=== PATIENT | female | born 1995 | race Asian ===

== ENCOUNTER 2016-11-10 15:03 | Emergency (ER) | payer OTHER ==
[~2016-11-10] VITALS: Ht 157.5 cm; Wt 50.7 kg
[~2016-11-10 15:03] MED LIST: ZLF50 PO; [UNRECOGNIZED DRUG - CODE] PO
[2016-11-10 15:05] VITALS: TEMP 36.5; Ht 157.5 cm; Wt 50.7 kg
[2016-11-10 16:11] LABS: BASO % 0.2 %; BASO ABS # 0.01 K/uL (0-0.2); COMPLETE YES; HEMATOCRIT 40.6 % (37-47); LYMPH % 22.9 %; LYMPH ABS # 1.33 K/uL (1.2-3.4); MEAN CORPUSCULAR HGB CONC 33.7 g/dl (32-36); MEAN PLATELET VOLUME 10.4 fL (7.4-10.4); MONO % 5.7 %; NEUT % 71.2 %; PLATELET COUNT 222 K/uL (130-400); RED BLOOD COUNT 4.89 M/uL (4.2-5.4); WHITE BLOOD COUNT 5.81 K/uL (4.8-10.8)
[2016-11-10 16:27] LABS: URINE APPEARANCE CLEAR (CLEAR); URINE BILIRUBIN NEG (NEG); URINE COLOR YELLOW; URINE NITRITE NEG (NEG); URINE SPECIFIC GRAVITY 1.001 (1.000-1.030); UROBILINOGEN NEG (NEG)
[2016-11-10 16:32] LABS: ACETAMINOPHEN < 2 ug/ml (10-30)
[2016-11-10 16:34] LABS: BUN/CREATININE RATIO 17.5 (10-20); CALCIUM 8.8 mg/dl (8.5-10.1); CREATININE 0.62 mg/dl (0.60-1.20); POTASSIUM 3.8 mmol/L (3.5-5.1)
[2016-11-10 16:46] LABS: ALB/GLOB RATIO 1.1 (0.9-2); THYROID STIMULATING HORMONE 0.037 uIu/ml (0.300-4.500)
[2016-11-10 16:53] LABS: MANUAL MICROSCOPIC REQUIRED? NO; REVIEW REQ? NO
[2016-11-10 16:57] LABS: BENZODIAZEPINE, URINE NEG (NEG); COCAINE,URINE NEG (NEG); PHENCYCLIDINE, URINE NEG (NEG)
[2016-11-10 19:17] VITALS: BP 107/68; PULSE 67; O2SAT 99
--- NOTE | 2016-11-11 00:18 | EMERGENCY ROOM VISIT NOTE ---
History Report prepared by Jonathon: Jarret Gomez Under the Supervision of: Dr. Jam Delatorre M.D. First contact with patient: 15:23 Chief Complaint: MENTAL HEALTH EVALUATION Stated Complaint: 302 History of Present Illness The patient is a 21 year old female who presents to the Emergency Room with complaints of intermittent suicidal thoughts occurring for the past few weeks. She has been crying for no reason. She reports mood swings and muscle tension. The patient has been feeling stressed this semester from school work. She does not think she can graduate this semester and feels she is overloaded with her classes. Her stress worsened about 2 weeks ago when the semester started. She feels overwhelmed. She had a loss of appetite and weakness. She reports irregular sleep pattern and poor concentration. She started having suicidal ideation a few weeks ago. She denies any suicide attempts or any specific plan. The patient denies any hallucinations or homicidal ideation. She has a history of 2 suicide attempts. She also has a history of depression and anxiety. She denies any drug or alcohol use. The patient does not smoke cigarettes. The patient currently denies any pain. Pt denies LOC, headache, fevers, chills, diaphoresis, visual changes, neck pain, chest pain, breathing difficulties, nausea, vomiting, abdominal pain, back pain, melena, hematochezia, urinary symptoms, numbness, lymphadenopathy, rash, or other complaints. The patient was evaluated by her therapist, Lisa Torrez, at [facility]. The patient had expressed thoughts of hurting herself due to school stress and the possibility of losing her scholarship. The patient was hospitalized 2 years ago for suicide attempt. Her therapist referred her to the Emergency Room for concerns about the suicidal ideation. Source of History: patient Onset: a few weeks ago Position: other (global) Symptom Intensity: No pain Quality: other (suicidal thoughts) Timing: intermittent Review of Systems See HPI for pertinent positives and negatives. A total of ten systems were reviewed and were otherwise negative. Past Medical & Surgical Medical Problems: (1) Depression (2) H/O suicide attempt (3) Hyperthyroidism Family History Patient reports no known family medical history. Social History Smoking Status: Never Smoker Marital Status: single Housing Status: lives with roommate Occupation Status: [employer] student Current/Historical Medications Scheduled Carbimazole (Bulk) (Carbimazole), 5 MG PO QID Allergies Coded Allergies: Caffeine (Verified Allergy, Unknown, migraine, 11/10/16) Physical Exam Vital Signs Date Time Temp Pulse Resp B/P Pulse Ox O2 Delivery O2 Flow Rate FiO2 11/10/16 19:17 67 16 107/68 99 11/10/16 19:10 67 16 107/68 99 Room Air 11/10/16 17:11 60 18 108/66 100 Room Air 11/10/16 15:05 36.5 68 17 132/88 99 Room Air Physical Exam GENERAL: Awake, alert, depressed appearing, no distress HENT: Normocephalic, atraumatic. TM's normal. Oropharynx unremarkable. EYES: PERRL. EOMI. Normal conjunctiva. Sclera non-icteric. NECK: Supple. No nuchal rigidity. FROM. No JVD or bruit. RESPIRATORY: CTA CARDIAC: RRR. No murmur. ABDOMEN: Soft, non distended. No tenderness to palpation. No rebound or guarding. No masses. MUSCULOSKELETAL: Unremarkable. No edema. No discoloration. Gross motor strength symmetric. NEURO: Cranial nerves 2-12 grossly intact. Normal sensorium. No sensory or motor deficits noted. Speech normal. No pronator drift. SKIN: No rash or jaundice noted. LYMPH: No adenopathy. PSYCH: Depressed mood. Flat affect. Vague suicidal thoughts. No definite plan. No homicidal ideation. Medical Decision & Procedures Laboratory Results 11/10/16 15:57 Red Blood Count 4.89, Mean Corpuscular Volume 83.0, Mean Corpuscular Hemoglobin 28.0, Mean Corpuscular Hemoglobin Concent 33.7, Mean Platelet Volume 10.4, Neutrophils (%) (Auto) 71.2, Lymphocytes (%) (Auto) 22.9, Monocytes (%) (Auto) 5.7, Eosinophils (%) (Auto) 0.0, Basophils (%) (Auto) 0.2, Neutrophils # (Auto) 4.14, Lymphocytes # (Auto) 1.33, Monocytes # (Auto) 0.33, Eosinophils # (Auto) 0.00, Basophils # (Auto) 0.01 11/10/16 15:57 Test 11/10/16 15:14 11/10/16 15:57 Urine Color YELLOW Urine Appearance CLEAR (CLEAR) Urine pH 6.0 (4.5-7.5) Urine Specific [place] 1.001 (1.000-1.030) Urine Protein NEG (NEG) Urine Glucose (UA) NEG (NEG) Urine Ketones NEG (NEG) Urine Occult Blood NEG (NEG) Urine Nitrite NEG (NEG) Urine Bilirubin NEG (NEG) Urine Urobilinogen NEG (NEG) Urine Leukocyte Esterase NEG (NEG) Urine Test NEG (NEG) Urine Opiates Screen NEG (NEG) Urine Methadone, Qualitative NEG (NEG) Urine Barbiturates NEG (NEG) Urine Phencyclidine (PCP) Level NEG (NEG) Ur Amphetamine/Methamphetamine NEG (NEG) MDMA (Ecstasy) Screen NEG (NEG) Urine Benzodiazepines Screen NEG (NEG) Urine Cocaine Metabolite NEG (NEG) Urine Marijuana (THC) NEG (NEG) White Blood Count 5.81 K/uL (4.8-10.8) Red Blood Count 4.89 M/uL (4.2-5.4) Hemoglobin 13.7 g/dL (12.0-16.0) Hematocrit 40.6 % (37-47) Mean Corpuscular Volume 83.0 fL (80-100) Mean Corpuscular Hemoglobin 28.0 pg (25-34) Mean Corpuscular Hemoglobin Concent 33.7 g/dl (32-36) Platelet Count 222 K/uL (130-400) Mean Platelet Volume 10.4 fL (7.4-10.4) Neutrophils (%) (Auto) 71.2 % Lymphocytes (%) (Auto) 22.9 % Monocytes (%) (Auto) 5.7 % Eosinophils (%) (Auto) 0.0 % Basophils (%) (Auto) 0.2 % Neutrophils # (Auto) 4.14 K/uL (1.4-6.5) Lymphocytes # (Auto) 1.33 K/uL (1.2-3.4) Monocytes # (Auto) 0.33 K/uL (0.11-0.59) Eosinophils # (Auto) 0.00 K/uL (0-0.5) Basophils # (Auto) 0.01 K/uL (0-0.2) RDW Standard Deviation 38.1 fL (36.4-46.3) RDW Coefficient of Variation 12.7 % (11.5-14.5) Immature Granulocyte % (Auto) 0.0 % Immature Granulocyte # (Auto) 0.00 K/uL (0.00-0.02) Anion Gap 9.0 mmol/L (3-11) Est Creatinine Clear Calc Drug Dose 112.6 ml/min Estimated GFR () 148.3 Estimated GFR (Non- 128.0 BUN/Creatinine Ratio 17.5 (10-20) Calcium Level 8.8 mg/dl (8.5-10.1) Total Bilirubin 0.8 mg/dl (0.2-1) Direct Bilirubin 0.1 mg/dl (0-0.2) Aspartate Amino Transf (AST/SGOT) 12 U/L (15-37) Alanine Aminotransferase (ALT/SGPT) 19 U/L (12-78) Alkaline Phosphatase 74 U/L (45-117) Total Protein 7.7 gm/dl (6.4-8.2) Albumin 4.1 gm/dl (3.4-5.0) Globulin 3.6 gm/dl (2.5-4.0) Albumin/Globulin Ratio 1.1 (0.9-2) Thyroid Stimulating Hormone (TSH) 0.037 uIu/ml (0.300-4.500) Salicylates Level < 1.7 mg/dl (2.8-20) Acetaminophen Level < 2 ug/ml (10-30) Ethyl Alcohol mg/dL < 3.0 mg/dl (0-3) Laboratory results reviewed by ne ED Course 1523: The patient was evaluated in room A06. A complete history and physical exam was performed. 1745: The patient is currently being evaluated by mental health. She does not currently have any complaints. 1840: The mental health delegated recommended discharging the patient. 1900: I reevaluated the patient and she is very comfortable with being discharged home. Discussed results and discharge instructions: She verbalized understanding and agreement. She will follow up with outpatient services and [facility]. The patient is ready for discharge. Medical Decision Triage Nursing notes reviewed. The patient's presentation and history were concerning for depression and suicidal thoughts. Etiologies such as mood disorder, toxicologic, infection, hypoglycemia, electrolyte abnormalities, cardiac sources, intracerebral event, neurologic, as well as others were entertained. The patient was evaluated. She had a petition statement from her therapist who was concerned about her mood. The patient was calm and cooperative. She feels overwhelmed by her work load at school. The patient had blood work obtained. Urinalysis obtained as well. Medically speaking the patient has been doing well over the last few weeks. Physical examination did not reveal any acute medical findings. The patient had an unremarkable CBC, urinalysis, test, chemistry panel, LFTs, drug screen, alcohol, Tylenol, and salicylate levels. The patient had a mildly low TSH which was consistent with her previously diagnosed hyperthyroidism. The patient was informed. She will follow-up as an outpatient for this. The patient was evaluated by the mental health liaison. She was not actively suicidal. She notes that the patient prefers not to be admitted to the hospital due to the impact on her academic work. The patient felt very comfortable with outpatient follow-up and services were arranged. She feels comfortable and safe going home and understands she can return at any time. I did meet with the patient and discuss this with her. She felt very comfortable. She was not actively suicidal. She is not homicidal. Her mood was improved. I gave my usual and customary discussion regarding this issue. Return insertions were outlined and the patient was discharged in stable condition. The chart was completed utilizing [employer] Speech voice recognition software. Grammatical errors, random word insertions, pronoun errors, and incomplete sentences are an occasional consequence of this system due to software limitations, ambient noise, and hardware issues. Any formal questions or concerns about the content, text, or information contained within the body of this dictation should be directly addressed to the physician for clarification. Impression Primary Impression: Mood disorder Scribe Attestation The scribe's documentation has been prepared under my direction and personally reviewed by me in its entirety. I confirm that the note above accurately reflects all work, treatment, procedures, and medical decision making performed by me. Departure Information Dispostion Home / Self-Care Referrals [facility] (PCP) Forms HOME CARE DOCUMENTATION FORM, IMPORTANT VISIT INFORMATION Patient Instructions My [facility] Additional Instructions PSYCHIATRIC INSTRUCTIONS: Continue your current medications. Return to the ER for severe anxiety or depression, thoughts of hurting yourself or others, inability to function, hallucinations, worsening of your condition, or as needed. Follow up with outpatient services as arranged by psychiatry/mental health. Follow up with [facility] this week for a recheck of your current condition and continued care due to your elevated thyroid function.
[2017-06-30] MEDS ORDERED: ASCO1CAP3 (10:17)
[2017-06-30] MEDS ORDERED: HYDR-5688 PO (12:41)
== END 2016-11-10 19:19 | disposition home or self-care (01) ==
LOC: C.EDB 15:04 → C.EDA 19:19
DX: F39 Unspecified mood [affective] disorder (principal); R45.851 Suicidal ideations; Z91.5 Personal history of self-harm

== ENCOUNTER → 2017-06-30 | Day surgery (SDC) | payer OTHER ==
--- NOTE | 2017-06-29 12:38 | History and Physical: Surg Cnt ---
History & Physical Date Jun 29, 2017. 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, treated with antibiotics, also has fistula opening left side Past Medical/Surgical History Medical Problems: (1) Depression (2) H/O suicide attempt (3) Hyperthyroidism Additional History Hepatic Disease: No Endocrine Disorder: No Kidney Disease: No Hypertension: No Heart Disease: No Bleeding Tendencies: No Infectious Diseases: No Allergies Coded Allergies: Caffeine (Verified Allergy, Unknown, migraine, 11/10/16) Home Medications Scheduled Carbimazole (Bulk) (Carbimazole), 5 MG PO QID Physical Examination Skin: warm/dry, no rash Eyes: normal inspection, EOMI, sclerae normal ENT: normal ENT inspection, pharynx normal Head: normocephalic, atraumatic Neck: supple, no adenopathy, trachea midline Respiratory/Chest: lungs clear, normal breath sounds, no respiratory distress Cardiovascular: regular rate, rhythm, no edema, no murmur Abdomen / GI: normal bowel sounds, non tender Back: normal inspection Extremities: normal inspection, normal range of motion Neurologic/Psych: no motor/sensory deficits, alert, normal reflexes, oriented x 3 Diagnosis right preauricular fistula and cyst Plan of Treatment excision of cyst and fistula. explained risks including recurrence
[2017-06-29 12:54] VITALS: Ht 157.5 cm; Wt 50.5 kg
[~2017-06-30] VITALS: Ht 157.5 cm; Wt 50.5 kg
[~2017-06-30] MED LIST changes: +ASCO1CAP3; +ATROPINE SULFATE 0.1 MG/ML 5ML SYR IV PRN; +CEFAZOLIN 1000MG/55 ML D5W IV SCH; +DEXAMETHASONE SOD INJ 4 MG/ML VIAL ONE; +EpHEDrine SULFATE INJ 50 MG/ML AMP IV PRN; +EpHEDrine SULFATE INJ 50 MG/ML AMP ONE; +FENTANYL CITRATE INJ 50 MCG/1 ML 2 ML VIAL IV PRN; +FENTANYL CITRATE INJ 50 MCG/1 ML 2 ML VIAL ONE; +GELATIN SPONGE 12-7MM ONE; +HYDR-5688 PO; +HYDROCODONE/ACETAMOPHEN 5/325MG TAB PO PRN; +LACTATED RINGER'S 1000ML 1,000 ML IV SCH; +LIDO 2%/EPINEPHRINE 1:100000 20 ML VIAL INFIL ONE; +LIDOCAINE HCL 2% 2 ML VIAL (20MG/ML) ONE; +METHYLENE BLUE 0.5% 10 ML VIAL ONE; +MIDAZOLAM HCL 1 MG/ML 2ML VIAL ONE; +NEOMYCIN/POLYMYXIN/BACITR/HC 15 GM TUBE ONE; +ONDANSETRON INJ 2 MG/ML 2 ML VIAL IV PRN; +ONDANSETRON INJ 2 MG/ML 2 ML VIAL ONE; +PROPOFOL IV EMULSION 10 MG/ML 20 ML VIAL IV ONE; +SODIUM CHLORIDE 0.9% 1000ML 1,000 ML IV SCH; -ZLF50 PO; -[UNRECOGNIZED DRUG - CODE] PO
--- NOTE | 2017-06-30 11:38 | History & Physical Bridge Note ---
H&P Re-Evaluation Bridge Note: I have examined the patient, reviewed the History & Physical and in the interval since the performance of the History & Physical I have noted the following changes of clinical significance: No changes noted
--- NOTE | 2017-06-30 12:40 | [facility] Operative Report ---
Operative Report Operative Date Jun 30, 2017. Pre-Operative Diagnosis Right preauricular cyst & fistula Post-Operative Diagnosis Same as pre-op Procedure(s) Performed Right preauricular cyst & fistula excision Surgeon Dr. Douglas [employer] Representative Surgeon(s) None Estimated Blood Loss 5ML Findings Cyst and fistula, completely excised Specimens A. Right preauricular cyst & fistula Anesthesia LMA Complication(s) None Disposition Recovery Room / PACU Indications 21-year-old female with infected right preauricular cyst and fistula Description of Procedure The patient was brought to the operating room placed supine position general anesthesia was induced with LMA. The fistula was probed with a lacrimal probe and then filled with methylene blue using an Angiocath catheter. Local anesthesia of 1% Xylocaine with 1 100,000 strength epinephrine was used. An elliptical incision was made around the fistula carried down inferiorly over the cyst with the lacrimal probe in place excising the entire fistula and cyst down to the tragal cartilage. There was no leakage of methylene blue indicating that the entire cyst was removed. The incision was closed with interrupted 4-0 chromic sutures subcuticularly and with Dermabond on the skin. She tolerated procedure well and was taken recovery area in satisfactory condition I attest to the content of the Intraoperative Record and any orders documented therein. Any exceptions are noted below.
--- NOTE | 2017-06-30 12:43 | Discharge Instructions-SurgCtr ---
Discharge Instructions Date of Service Jun 30, 2017. Visit Reason for Visit: Right Preauricular Cyst And Fistula Discharge Discharge Diagnosis / Problem: same Discharge Goals Goal(s): Therapeutic intervention Activity Recommendations Activity Limitations: resume your previous activity Anesthesia . Post Anesthesia Instructions: If you have had General Anesthesia or IV Sedation: * Do not drive today. * Resume driving when surgeon permits. * Do not make important decisions or sign legal documents today. * Call surgeon for: 1. Temperature elevations greater than 101 degrees F. 2. Uncontrollable pain. 3. Excessive bleeding. 4. Persistent nausea and vomiting. 5. Medication intolerance (nausea, vomiting or rash). * For nausea and vomiting use only clear liquids such as: tea, soda, bouillon until nausea subsides, then gradually increase diet as tolerated. * If you have any concerns or questions, call your surgeon's office. If physician is unavailable and it is an emergency, call 911 or go to the nearest emergency room. . Instructions / Follow-Up Instructions / Follow-Up ACTIVITY: Most patients are able to return to a full-time work schedule in 1 week; however this may vary according to your job. It may take longer to return to heavy physical or other demanding work, or shorter if you are feeling well. Do NOT drive while you are taking pain medicines. DIET: You may be able to return to your usual diet INCISION CARE: You may shower 24 hours after surgery but please do not swim or soak in a tub for at least 2 weeks. After you are done showering, just pat your incision dry. If it is draining clear fluid, you can cover it with a dry dressing (such as gauze). Do NOT scrub with soap or washcloth for the first 10 days. Mild swelling at the incision site will go away in 4-6 weeks. The pink line will slowly fade to white during the next 6-12 months. Use a sunscreen (SPF#30 or higher) or wear a scarf for protection if in the sun for the first 6 months to a year as the sun can darken your scar. You may begin to use a hypoallergenic moisturizing cream (no vitamin E, Mederma , or other scar creams) along the incision after 2 weeks. COMMON PROBLEMS: Numbness of the skin under the chin or above the incision is normal and should go away in a few weeks. You may feel a lump or pressure in your throat sensation when swallowing for a few days. Your incision may feel itchy while it heals. Avoid rubbing or scratching if possible. You do not need to be at bed rest, being active is normally well tolerated within reason. CALL YOUR DOCTOR IF: For any non-urgent questions, call Dr. Gillespie office [phone] or the nursing unit where you were a patient. Call Dr. Douglas [phone] or go to the Emergency Room if you have fever ( temperature greater than 100.5), chills, lightheadedness, shortness of breath, difficulty breathing, nausea, vomiting, numbness or tingling in your fingers, hands, or mouth, muscle spasms, or if you notice signs of wound infection ( redness, tenderness, or drainage from the incision). Please also call or go to the Emergency Room if you have any other urgent concerns. FOLLOW UP VISIT: Follow-up visit with Dr. Douglas. Please call to schedule if not already scheduled. Diet Recommendations Home Diet: no limitations Procedures Procedures Performed: Right preauricular cyst & fistula excision Pending Studies Studies pending at discharge: no Medical Emergencies . Who to Call and When: Medical Emergencies: If at any time you feel your situation is an emergency, please call [phone] immediately. . Non-Emergent Contact Non-Emergency issues call your: Primary Care Provider . . "Provider Documentation" section prepared by Leticia Douglas. . [place] Drug Monitoring Program Search Results: no issues identified
--- NOTE | 2017-06-30 13:38 | Anesthesia Progress Nt - [facility] ---
Anesthesia Post Op Note Date & Time Jun 30, 2017 at 13:37 Vital Signs Pain Intensity: 2 Vital Signs Past 12 Hours Date Time Temp Pulse Resp B/P (MAP) Pulse Ox O2 Delivery O2 Flow Rate FiO2 06/30/17 13:16 36.7 82 16 110/74 (86) 99 Room Air 06/30/17 13:12 68 20 106/60 100 Room Air 06/30/17 13:07 64 24 06/30/17 13:07 63 24 99 06/30/17 13:06 107/65 06/30/17 13:02 67 21 100 06/30/17 13:02 66 21 06/30/17 13:01 115/66 06/30/17 12:57 68 22 06/30/17 12:57 68 22 100 06/30/17 12:56 113/65 06/30/17 12:52 62 19 100 06/30/17 12:52 63 19 06/30/17 12:51 109/59 06/30/17 12:47 67 22 100 06/30/17 12:47 67 22 06/30/17 12:46 109/67 06/30/17 12:42 61 19 100 06/30/17 12:42 61 19 06/30/17 12:41 59 17 111/60 100 06/30/17 12:41 59 17 06/30/17 12:37 113/53 06/30/17 12:36 36.6 67 16 113/53 100 Mask 6 06/30/17 10:17 36.6 85 22 107/73 (84) 97 Room Air Notes Mental Status: alert / awake / arousable, participated in evaluation Pt Amnestic to Procedure: Yes Nausea / Vomiting: adequately controlled Pain: adequately controlled Airway Patency, RR, SpO2: stable & adequate BP & HR: stable & adequate Hydration State: stable & adequate Anesthetic Complications: no major complications apparent
[2017-06-30 13:50] VITALS: BP 132/76; PULSE 83; O2SAT 99
== END ==
LOC: X.SURG 09:52
PROVIDERS: ATTEND Otolaryngology
DX: Q18.1 Preauricular sinus and cyst (principal); E03.9 Hypothyroidism, unspecified; F32.9 Major depressive disorder, single episode, unspecified; Z79.899 Other long term (current) drug therapy